=== PATIENT | male | born 1940 | race Caucasian/White ===

== ENCOUNTER → 2024-06-29 | Outpatient (CLI) | payer MEDICARE, BC ==
--- NOTE | 2024-06-29 13:20 | CA ---
Stress Echo Report Viet Hopkins Age: 84 Gender: M : 1940 Exam Date: 06/29/2024 10:55 Exam Location: [place] [facility] Ht (in): 67 Wt (lb): 165 Ordering Physician: Kaveh Gomez MD Referring Physician: Patricia KNIGHT Pesticide Applicator: Zhanna Finley RDCS Technologist Procedure CPT: Indication: R079 CHEST PAIN ICD-9 Codes: Rhythm: Patient History: CHEST PAIN, HTN Cardiac Medications: LISINOPRIL, ASA 81 mg Medications in past 24 hours: Contrast: Stress Results Protocol: Carlos Total dose(mL): Exercise Duration (min:sec): 5:[address] Depression (mm): Angina Score: English Score: METS: 7.0 Resting HR: 65 Resting BP: 174 / 79 Peak HR: 121 Peak BP: 190 / 73 Max Predicted HR: 136 89 % Max Predicted HR Target HR: 116 Double Product: [id number] Stress Summary: BP Response: Reason for Termination: MAX EXERTION/TARGET HR Cardiac Symptoms: NO SYMPTOMS ECG Analysis Resting ECG: Normal sinus bradycardia, heart rate 57 bpm Stress EC mm flat ST depressions in inferior lead with peak stress. Arrhythmia: Echo Analysis Resting Echo: Normal global and segmental systolic function at rest. No significant resting regional wall motion normality Peak Echo Analysis: No stress-induced regional wall motion abnormality appreciated. Normal augmentation of global and segmental systolic function MEASUREMENTS (Male/Female) Normal Values CONCLUSIONS Fair exercise tolerance for age achieving 7 METS Abnormal ECG response to treadmill exercise Nonischemic echocardiographic response to treadmill exercise Overall normal clinical and hemodynamic response to treadmill exercise Overall low probability for severe obstructive coronary artery disease. Dr Micheal Cueva (Electronically Signed) Final Date: 29 June 2024 13:19
== END | disposition home or self-care (01) ==
LOC: RADNMMAIN 09:39
PROVIDERS: ATTEND Family Medicine
DX: R07.9 Chest pain, unspecified (principal); R94.31 Abnormal electrocardiogram [ECG] [EKG]
CPT/HCPCS: 93351